=== PATIENT | male | born 1980 | race Caucasian/White ===

== ENCOUNTER → 2020-03-10 | Outpatient (CLI) | payer SELFPAY | LOC: M LABSMTC 13:15 | PROVIDERS: ATTEND Pediatrics | DX: Z20.822 Contact with and (suspected) exposure to COVID-19 (principal) ==

== ENCOUNTER 2020-11-28 20:59 | Day surgery (SDC) | payer OTHER, SELFPAY ==
[~2020-11-28] VITALS: Ht 188 cm; Wt 101.7 kg
[2020-11-28] MEDS ORDERED: GLUCAGON INJ 1MG VIAL IV STA (23:18)
[2020-11-28] MEDS ORDERED: ONDANSETRON 4MG/2ML VIAL IV ONE (23:20)
[2020-11-28] MEDS ORDERED: NS 1,000 ML IV SCH (23:20)
[2020-11-28 23:30] LABS: BASO % 0.1 % (0.0-1.0); EOS % 0.1 % (0.0-3.0); HEMATOCRIT 48.3 % (42.0-52.0); HEMOGLOBIN 16.3 g/dl (13.5-17.5); LYMPH # 2.2 10^3/uL (1.5-5.0); LYMPH % 15.3 % (24.0-44.0); MEAN CORPUSCULAR HEMOGLOBIN 29.3 pg (27.0-33.0); MEAN CORPUSCULAR HGB CONC 33.7 g/dl (32.0-36.5); MEAN CORPUSCULAR VOLUME 86.7 fl (80.0-96.0); MONO # 1.2 10^3/uL (0.0-0.8); MONO % 8.3 % (2.0-8.0); NEUTROPHILS # 10.8 10^3/uL (1.5-8.5); NEUTROPHILS % 75.9 % (36.0-66.0); PLATELET COUNT, AUTOMATED 308 10^3/uL (150-450); RED BLOOD COUNT 5.57 10^6/uL (4.30-6.10); WHITE BLOOD COUNT 14.2 10^3/uL (4.0-10.0)
[2020-11-29 00:22] LABS: BLOOD UREA NITROGEN 24 MG/DL (7-18); CALCIUM LEVEL 9.5 MG/DL (8.5-10.1); CARBON DIOXIDE LEVEL 25 MEQ/L (21-32); CHLORIDE LEVEL 108 MEQ/L (98-107); CREATININE FOR GFR 1.25 MG/DL (0.70-1.30); GLOMERULAR FILTRATION RATE > 60.0 (>60); GLUCOSE, FASTING 116 MG/DL (70-100); POTASSIUM SERUM 4.4 MEQ/L (3.5-5.1); SODIUM LEVEL 140 MEQ/L (136-145)
[2020-11-29 01:33] LABS: RSV AMPLIFICATION NEGATIVE (NEGATIVE)
[2020-11-29] MEDS ORDERED: HOME MED LIST COMPLETE! XX SCH (01:40)
[2020-11-29] MEDS ORDERED: MIDAZOLAM INJ 2MG/2ML VIAL (J2250 PER 1MG) As Ordered ONE (01:41)
[2020-11-29] MEDS ORDERED: fentaNYL 100 MCG/2 ML INJECTION (J3010) As Ordered ONE (01:41)
[2020-11-29] MEDS ORDERED: propofoL 200 MG/20 ML VIAL As Ordered ONE (01:44)
[2020-11-29] MEDS ORDERED: LIDOCAINE 2% 100MG/5ML SDV (FOR ANES.) As Ordered ONE (01:44)
[2020-11-29] MEDS ORDERED: dexameTHASONE 4 MG/ML 1ML VIAL (J1100 PER 1MG) As Ordered ONE (01:45)
[2020-11-29] MEDS ORDERED: SUCCINYLCHOLINE 100 MG/5 ML SYRINGE (J0330) As Ordered ONE (01:47)
--- NOTE | 2020-11-29 04:40 | ROOR ---
Patient Name: Fawad Del Valle Procedure Date: 11/29/2020 1:20 AM Date of : 1980 Age: 40 Room: Main OR Gender: Male Note Status: Finalized Procedure: Upper GI endoscopy Indications: Foreign body in the esophagus Providers: Cristhian Tobias MD Referring MD: 3. Emergency Dept 3. Emergency Dept Requesting Provider: Medicines: Monitored Anesthesia Care Complications: No immediate complications. Procedure: Pre-Anesthesia Assessment: - Prior to the procedure, a History and Physical was performed, and patient medications and allergies were reviewed. The patient is competent. The risks and benefits of the procedure and the sedation options and risks were discussed with the patient. All questions were answered and informed consent was obtained. Patient identification and proposed procedure were verified by the physician, the nurse and the anesthesiologist in the procedure room. Mental Status Examination: alert and oriented. Airway Examination: normal oropharyngeal airway and neck mobility. Respiratory Examination: clear to auscultation. CV Examination: normal. Prophylactic Antibiotics: The patient does not require prophylactic antibiotics. Prior Anticoagulants: The patient has taken no previous anticoagulant or antiplatelet agents. ASA Grade Assessment: II - A patient with mild systemic disease. After reviewing the risks and benefits, the patient was deemed in satisfactory condition to undergo the procedure. The anesthesia plan was to use monitored anesthesia care (MAC). Immediately prior to administration of medications, the patient was re-assessed for adequacy to receive sedatives. The heart rate, respiratory rate, oxygen saturations, blood pressure, adequacy of pulmonary ventilation, and response to care were monitored throughout the procedure. The physical status of the patient was re-assessed after the procedure. The Endoscope was introduced through the mouth, and advanced to the second part of duodenum. The upper GI endoscopy was accomplished without difficulty. The patient tolerated the procedure well. Findings: Food was found in the upper third of the esophagus. The endoscope was removed, and an overtube with cap was fitted. The scope and overtube were then reinserted via the mouth and advanced to the esophagus to protect the esophagus, to aid in foreign body removal and to facilitate repeated passages of the scope. Removal was accomplished with a jumbo forceps, overtube, rat-toothed forceps, Phillips net and snare. Mucosal changes including ringed esophagus, small-caliber esophagus, white plaques, mucosal friability and stenosis were found in the upper third of the esophagus and in the lower third of the esophagus. Biopsies were obtained from the proximal and distal esophagus with cold forceps for histology of suspected eosinophilic esophagitis. Verification of patient identification for the specimen was done by the physician and nurse using the patient's name, date and medical record number. Estimated blood loss was minimal. LA Grade C (one or more mucosal breaks continuous between tops of 2 or more mucosal folds, less than 75% circumference) esophagitis with no bleeding was found in the distal esophagus. Patchy severely erythematous mucosa without bleeding was found in the gastric fundus. Patchy moderately erythematous mucosa without active bleeding and with no stigmata of bleeding was found in the duodenal bulb. The second portion of the duodenum and third portion of the duodenum were normal. Impression: - Food was found in the esophagus. Removal was successful. - Esophageal mucosal changes suggestive of eosinophilic esophagitis. Biopsied. - LA Grade C reflux esophagitis. - Erythematous mucosa in the gastric fundus. - Erythematous duodenopathy. - Normal second portion of the duodenum and third portion of the duodenum. - An overtube with cap was used to protect the esophagus, to aid in foreign body removal and to facilitate repeated passages of the scope. Recommendation: - Patient has a contact number available for emergencies. The signs and symptoms of potential delayed complications were discussed with the patient. Return to normal activities tomorrow. Written discharge instructions were provided to the patient. - Clear liquid diet for 1 day, then advance as tolerated to mechanical soft diet and pureed diet. - Use Protonix (pantoprazole) 40 mg PO BID for 3 months. - Avoid the food allergens. Follow Six Food Elimination Diet ( Avoid -- milk, soy, eggs, wheat, peanuts/tree nuts, and seafood), until allergy testing is done. - Continue present medications. - Await pathology results. - Return to GI clinic in [facility] (address: [address] [place] [address], [address] [place] [address], [place], [place],[facility]) in 4 -- 6 weeks. Please call GI clinic @ [phone] for apppointment date and time. - Repeat upper endoscopy in 3 months to check healing and to evaluate the response to therapy. - Return to primary care physician. - Use sucralfate suspension 1 gram PO QID for 4 weeks. Procedure Code(s): --- Professional --- 88368, Esophagogastroduodenoscopy, flexible, transoral; with removal of foreign body(s) 59321, Esophagogastroduodenoscopy, flexible, transoral; with biopsy, single or multiple Diagnosis Code(s): --- Professional --- T18.128A, Food in esophagus causing other injury, initial encounter K22.8, Other specified diseases of esophagus K21.0, Gastro-esophageal reflux disease with esophagitis K31.89, Other diseases of stomach and duodenum T18.108A, Unspecified foreign body in esophagus causing other injury, initial encounter CPT copyright 2019 [employer]. All rights reserved. The codes documented in this report are preliminary and upon equipment sterilizer review may be revised to meet current compliance requirements. Cristhian Tobias MD Cristhian Tobias MD 11/29/2020 4:40:02 AM Electronically signed by Cristhian Tobias MD Number of Addenda: 0 Note Initiated On: 11/29/2020 1:20 AM Estimated Blood Loss: Estimated blood loss was minimal.
[2020-11-29] MEDS ORDERED: oxyCODONE 5MG TAB PO PRN (04:45)
[2020-11-29] MEDS ORDERED: ONDANSETRON 4MG/2ML VIAL IV PRN (04:45)
[2020-11-29] MEDS ORDERED: LR 1,000 ML IV SCH (04:45)
[2020-11-29] MEDS ORDERED: fentaNYL 100 MCG/2 ML INJECTION (J3010) IV PRN (04:45)
[2020-11-29] MEDS ORDERED: HYDROMORPHONE HCL 0.5 MG/ 0.5 ML SYRINGE (J1170 PER 1) IV PRN (04:45)
[2020-11-29 05:30] VITALS: BP 147/82
[2020-11-29 06:00] VITALS: BP 147/83
[2020-11-29 06:30] VITALS: BP 144/84
[2020-11-29 07:30] VITALS: BP 135/80
== END 2020-11-29 12:35 | disposition home or self-care (01) ==
LOC: M ED 20:59 → M SDC 21:00 → M MS5PR 11-29 05:22 → M SDC 11-29 05:22 → M MS5PR 11-29 12:35 → M SDC 11-29 12:35
PROVIDERS: ATTEND Internal Medicine Gastroenterology
DX: T18.128A Food in esophagus causing other injury, initial encounter (principal); K21.00 Gastro-esophageal reflux disease with esophagitis, without bleeding; K22.89 Other specified disease of esophagus; Y92.89 Other specified places as the place of occurrence of the external cause
CPT/HCPCS: 43239; 43247; 80048; 85025; 86850; 86900; 86901; 87631; 88305; 96361; 96374; 96375; 99284; J0330; J1100; J1610; J2250; J2405; J3010

== ENCOUNTER 2021-03-02 10:29 | Day surgery (SDC) | payer OTHER ==
[~2021-03-02] VITALS: Ht 188 cm; Wt 106.6 kg
[~2021-03-02 10:29] MED LIST: NS 1,000 ML IV ONE; PANT40TA29 PO; SUCR1TAB56 PO
[2021-03-02] MEDS ORDERED: propofoL 200 MG/20 ML VIAL As Ordered ONE ×3 (12:14→12:47)
[2021-03-02] MEDS ORDERED: LIDOCAINE 2% 100MG/5ML SDV (FOR ANES.) As Ordered ONE (12:14)
[2021-03-02] MEDS ORDERED: GLYCOPYRROLATE INJ 0.2 MG/ML 2 ML VIAL As Ordered ONE (12:15)
[2021-03-02] MEDS ORDERED: METOPROLOL 5 MG/5 ML VIAL As Ordered ONE (12:21)
[2021-03-02] MEDS ORDERED: ONDANSETRON 4MG/2ML VIAL As Ordered ONE (12:40)
[2021-03-02 13:09] VITALS: BP 134/95
== END 2021-03-02 13:24 | disposition home or self-care (01) ==
LOC: M OPP 10:29
PROVIDERS: ATTEND Internal Medicine Gastroenterology
DX: K22.89 Other specified disease of esophagus (principal); K21.00 Gastro-esophageal reflux disease with esophagitis, without bleeding; K29.70 Gastritis, unspecified, without bleeding; R13.10 Dysphagia, unspecified; G47.30 Sleep apnea, unspecified; Z87.891 Personal history of nicotine dependence
CPT/HCPCS: 43239; 43249; 88305; J2405